=== PATIENT | female | born 1955 | race Caucasian/White ===

== ENCOUNTER 2025-02-02 13:01 | Outpatient (AMB) | payer MEDICARE, SELFPAY ==
--- NOTE | 2025-02-02 13:11 | GYNCLNT_ITS ---
Vital Signs 02/02/25 13:23 Weight 82.27 kg Weight Measurement Method Standing Scale BP 128/76 Blood Pressure Source Automatic Cuff Blood Pressure Location Left Upper Arm Position Sitting Respiration 18 Pulse 78 Pulse Source Monitor Temp 98.2 F Temp Source Oral Pulse Oximetry (%) 98 Oxygen Delivery Method Room Air Allergies/Home Meds Allergies & Medications Allergies No Known Allergies Allergy (Verified 02/02/25 13:24) Medication Reconciliation No Known Home Medications 02/02/25 [History Confirmed 02/02/25] Intake Visit Data Collection New Patient or Established: New Patient (never been to [facility]) Reason for Visit:: PROLAPSE Seen by Clinical Staff ONLY (RN/MA): No Electrical Engineering Intern Required: Yes Electrical Engineering Intern's name/title: SARAVANAN BOLTON MA Do You Feel Safe at Home: Yes Authorities Contacted: N/A PCP or OBGYN visit in last 3 months: Yes Date of Last PCP or OBGYN visit: 12/09/24 Hx Now: No Are you currently on any form of Control: No Pain Present Currently: No Pain Scale Used: Martinez-Yusuf/Numerical Pain scale:: 0 Smoking Status Smoking Status: Never smoker Immunizations Flu Vaccine in the Last 12 Months: No Flu Vaccine Exclusion Criteria: Already Received 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 1. Little interest or pleasure in doing things: not at all 2. Feeling down, depressed, or hopeless: not at all Total score: 0 PHQ-9 3. Trouble falling or staying asleep, or sleeping too much: Not at all 4. Feeling tired or having little energy: Not at all 5. Poor appetite or overeating: Not at all 6. Feeling bad about yourself - or that you are a failure or have let yourself or your family down: Not at all 7. Trouble concentrating on things, such as reading the newspaper or watching television: Not at all 8. Moving or speaking so slowly that other people could have noticed? - Or the opposite - being so fidgety or restless that you have been moving around a lot more than usual: not at all 9. Thoughts that you would be better off or of hurting yourself in some way: Not at all Total score: 0 If you checked off any problems, how difficult have these problems made it for you to do your work, take care of things at home, or get along with other people?: not difficult at all Source: Developed by Drs. Tito Schaefer, Jaye Butt, Chandler Darden and colleagues, with an educational kya from [employer]. Depression screen completed yes Social History Living Situation History Marital Status: Single Lives With: Family Housing: House Tobacco History Smoking Status: Never smoker Second Hand Smoke Exposure: No Alcohol History Alcohol Intake: Never Domestic Abuse History Do You Feel Safe at Home: Yes History of Present Illness HPI Narrative Uterine prolapse, bladder prolapse, urinary urgency with difficulty voiding requiring position changes Carolyn Saxena presents with uterine prolapse and bladder prolapse. The patient reports that her uterus comes down significantly when she coughs. She experiences urinary symptoms including urgency and difficulty urinating, requiring her to lie down and manually push the prolapse back up to relieve symptoms. The patient has been evaluated by Dr. Manuel, a urologist, for the bladder component of her prolapse. She has retained her uterus and ovaries. The prolapse symptoms are impacting her daily functioning, particularly affecting her ability to urinate normally. Exam Narrative Physical exam: - Obstetric Examination: Pelvic examination performed. Uterus and ovaries present and intact. With cough, significant uterine prolapse observed with uterus descending considerably. Pessary (size 35) successfully placed with small tail visible externally for monitoring purposes. General General Appearance: alert, in no apparent distress and healthy appearing Head Head exam: atraumatic Neck Neck exam: Present normal inspection and trachea midline Chest Chest inspection: Present normal inspection and symmetric chest wall rise External exam: Present normal external exam; Absent tenderness Neuro Neurological exam: Present oriented X3 Psych Psychiatric exam: Present normal affect and normal mood Office Procedures [facility] LOC & Office Proc's Nursing/Assessment Patient Status: Initial/New Patient OB Clinic Nursing Assessment: Medication Reconciliation, Update PMH in EMR and Vital Signs OB Clinic Coordination of Care: Education Complex Pt/Fam, Consent,records obtained, informed consent, Lab and Imaging orders, Results/Orders obtained and Staff clarify orders New Patient Charge New Patient Point Assignment: [id number] 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 The patient has an intact uterus and ovaries. The prolapse is causing functional impairment, including urinary symptoms where the patient experiences urinary urgency but cannot void and must lie down to manually reduce the prolapse. Plan: - Pessary placement performed today using smallest size (cube-type pessary) to provide temporary support until surgery - Patient educated that pessary will hold uterus up until surgical intervention - Patient instructed that if pessary falls out, to place in Ziploc bag and return for reinsertion - Hysterectomy planned in coordination with Dr. Hill for March or April timeframe - Surgical plan includes uterine removal with repair of loose tissue, coordinated with urologist for bladder repair - Stool softener recommended to prevent straining (fiber supplements like Benefiber or Metamucil) - Coordinate with Dr. Hill to schedule joint surgical procedure once approvals obtained Bladder prolapse Assessment: Patient has concurrent bladder prolapse being managed by Dr. Hill (urology). This is contributing to her urinary symptoms and functional limitations. Plan: - Joint surgical repair planned with Dr. Hill for bladder component - Coordinate timing with hysterectomy for combined procedure in March or April Advanced Care Planning Advance care planning discussed with:: patient
[2025-02-02 13:23] VITALS: BP 128/76; PULSE 78; RESP 18; TEMP 36.8; O2SAT 98
== END 2025-02-02 14:04 | disposition home or self-care (01) ==
PROVIDERS: PCP Surgery; Referring Provider Surgery; Supervising Provider Obstetrics & Gynecology; Visit Provider Obstetrics & Gynecology
DX: N81.3 Complete uterovaginal prolapse (principal)
CPT/HCPCS: 99203; G0463